=== PATIENT | male | born 1985 | race Caucasian/White ===

== ENCOUNTER → 2024-02-16 15:34 | Outpatient (REF) | payer OTHER, SELFPAY | LOC: RAD 15:34 | PROVIDERS: ATTENDING PHYSICIAN Physician Assistant | DX: M79.674 Pain in right toe(s) (principal) | CPT/HCPCS: 73630 ==

== ENCOUNTER 2024-02-26 14:52 | Emergency (ER) | payer OTHER, SELFPAY ==
[2024-02-26 15:06] VITALS: BP 132/84
--- NOTE | 2024-02-26 15:37 | ED.MUSCINJ ---
HPI-Injury
General
Chief Complaint: Musculo-Skeletal Complaint
Source: patient
Exam Limitations: none
Time Seen by Provider: 02/26/24 15:09
Nursing documentation reviewed up to this point in time: agreed with
Travel History
Have you had any contact with someone who has COVID-19?: No
Do you have any symptoms of coronavirus? Fever > 100 degrees, chills, cough, shortness of breath, sore throat, loss of taste or smell, muscle aches, or headache?: No
History of Present Illness-Injury
Initial Injury comments:
38 yo male with history of gout 1.5 yrs ago developed pain in right great toe joint 4 weeks ago. It started with soreness in the toe joint and became 'agonizing' then seemed to settle down a little bit but still painful. He saw PCP and was put on
colchicine and Indocin which she took for 5 days with no improvement in the pain. He went back to the PCP and was put on a steroid taper which she finished 7 days ago, still with no relief. His PCP referred him to podiatry but he cannot get an
appointment until March 21. He states the pain is 9/10 at times and it keeps him awake at night. He had an x-ray at his PCP office which he states was negative. He denies fever or chills.
Past History
Past History
ED Past Medical History: Cancer (Hodgkin's lymphoma 2010), HTN and Hypercholesterolemia
ED Past Surgical History: Cardiac (Cardiac stents) and Cholecystectomy
Patient has exhibited threatening behavior?: No
PSI?: No
Social History
Tobacco: Non-smoker
Alcohol: Occasional
Personal:
Living: with family
Employment: Employed
Review of Systems
Review of Systems
Allergies reviewed?: Yes
All Other Systems: ROS reviewed and negative except as documented in HPI and ROS
Constitutional: Denies fever
Musculoskeletal: Reports other (Pain right big toe joint)
Skin: Reports no symptoms
Phy Exam
Physical Exam
Physical Exam:
PHYSICAL EXAMINATION:
General: no apparent distress, not acutely ill
Neuro: alert and oriented.
Psychiatric: well kept. interactive and cooperative
Musculoskeletal: There is no redness, swelling, warmth about the right first MTP joint. It is tender to palpate however. Distal neurovascular intact. Brisk capillary refill. Moves with ease
Skin: Warm, pink.
MDM/Problems Addressed
MDM/Problems Addressed:
38 yo male with history of gout 1.5 yrs ago developed pain in right great toe joint 4 weeks ago. It started with soreness in the toe joint and became 'agonizing' then seemed to settle down a little bit but still painful. He saw PCP and was put on
colchicine and Indocin which she took for 5 days with no improvement in the pain. He went back to the PCP and was put on a steroid taper which she finished 7 days ago, still with no relief. His PCP referred him to podiatry but he cannot get an
appointment until March 21. He states the pain is 9/10 at times and it keeps him awake at night. He had an x-ray at his PCP office which he states was negative. He denies fever or chills.
Afebrile
I contacted on-call customs patrol officer Dr. Nelson who says he can definitely get the patient in before March 21.
Patient provided contact information and told to call the office first thing Thursday morning.
Prescription sent to his pharmacy for Percocet to get him through the weekend.
*Critical Care Note
Total Time (30-74mins, 75-104mins- exclusive of procedures): Not Applicable
ED Attending Note
-
Portions of this chart may have been created with voice recognition software.� Occasional wrong word or��sound alike� substitutions may have occurred due to the inherent limitations of voice recognition software.
Discharge Plan
Departure
Patient Disposition: Home (Routine Discharge)
Date of Disposition: 02/26/24
Time of Disposition: 15:58
Patient with high blood pressure during this ER visit?: No
Condition: Good
Discharge Problem:
Pain of right great toe
Instructions: Joint Pain, Gout ED
Prescriptions:
New
hydrocodone-acetaminophen 5-325 mg tablet
1 tab PO Q8H PRN (Reason: pain) Qty: 6 0RF
No Action
levothyroxine 75 mcg Tablet
75 mcg PO DAILY
atorvastatin 80 mg Tablet
80 mg PO QPM Qty: 90 5RF
aspirin 81 mg Tablet,Chewable
81 mg PO DAILY Qty: 1 0RF
clopidogrel 75 mg Tablet
75 mg PO DAILY Qty: 90 5RF
metoprolol succinate 25 mg Tablet Extended Release 24 Hr
12.5 mg PO DAILY Qty: 90 5RF
lisinopril 2.5 mg Tablet
2.5 mg PO DAILY Qty: 90 5RF
nitroglycerin [nitroglycerin] 0.4 mg tablet, sublingual
0.4 mg sublingual [id number] PRN (Reason: chest pain) Qty: 25 5RF
Referrals:
Jacinto Nelson DPM [Specified Professional Personl] - Call in 1-3 days for appt
Activity Restrictions/Additional Instructions:
As we discussed, I sent a prescription to your pharmacy for Vicodin to use at bedtime. Do not drive or operate any machinery within 6 hours of taking the hydrocodone or Vicodin as it can make you sleepy and slow your reflexes.
Call Dr. Nelson's office Thursday for next available appointment.
Interventions
Interventions:
*Risk Screen - Suicide Last Done: 02/26/24 15:34
*General Assessment Last Done: 02/26/24 15:34
*Neglect/Abuse Screening Last Done: 02/26/24 15:34
ED- Fall Risk Assessment Last Done: 02/26/24 15:34
*ED COVID-19 Vaccine History Last Done: 02/26/24 15:06
*Nursing Disposition Last Done: 02/26/24 16:35
ED-Musculoskeletal Assessment Last Done: 02/26/24 15:34
Discharge Date and Time
Discharge Date/Time: 02/26/24 16:36
Print Language: MACEDONIAN
[2024-02-26 16:35] VITALS: BP 117/79
--- NOTE | 2024-02-26 16:35 | EDRN ---
Reviewed discharge instructions with patient. Verbalized understanding. Ambulated with steady gait to the lobby.
== END 2024-02-26 16:36 | disposition home or self-care (01) ==
LOC: EMR 14:52
PROVIDERS: EMERGENCY PHYSICIAN Emergency Medicine; FAMILY PHYSICIAN Family Medicine
DX: M79.674 Pain in right toe(s) (principal); M10.9 Gout, unspecified; Z85.71 Personal history of Hodgkin lymphoma; I10 Essential (primary) hypertension; E78.00 Pure hypercholesterolemia, unspecified; Z95.5 Presence of coronary angioplasty implant and graft; Z90.49 Acquired absence of other specified parts of digestive tract; Z88.5 Allergy status to narcotic agent; Z88.8 Allergy status to other drugs, medicaments and biological substances
CPT/HCPCS: 99283